=== PATIENT | female | born 1985 | race Caucasian/White ===

== ENCOUNTER 2019-11-17 09:54 | Outpatient (CLI) | payer BC ==
[~2019-11-17] VITALS: Ht 160 cm; Wt 62.7 kg
[2019-11-17 11:22] VITALS: BP 130/81
[2019-11-17] MEDS ORDERED: PREN1TAB10 PO (11:34)
== END 2019-11-17 11:55 | disposition home or self-care (01) ==
LOC: LDOP 09:54
PROVIDERS: ATTEND Obstetrics & Gynecology Maternal & Fetal Medicine
DX: O42.92 Full-term premature rupture of membranes, unspecified as to length of time between rupture and onset of labor (principal); Z3A.40 40 weeks gestation of pregnancy
CPT/HCPCS: 59025; 84112; 99211; G0463

== ENCOUNTER 2019-11-18 18:43 | Inpatient (IN) | payer BC ==
[~2019-11-18] VITALS: Ht 160 cm; Wt 63.0 kg
[~2019-11-18 18:43] MED LIST: PREN1TAB10 PO
[2019-11-18] MEDS ORDERED: MEPERIDINE/PF 50 MG/ML ONE (21:08)
[2019-11-18] MEDS ORDERED: PROMETHAZINE 25 MG/ML, 1ML IM PRN (21:20)
[2019-11-18] MEDS: MEPERIDINE/PF 50 MG/ML IM PRN (21:28)
[2019-11-18] MEDS ORDERED: OXYTOCIN 30U/ 0.9% NaCL 500ML 500 ML IV PRN (23:43)
[2019-11-18] MEDS ORDERED: OXYTOCIN 30U/ 0.9% NaCL 500ML 500 ML IV ONE (23:43)
[2019-11-18] MEDS ORDERED: LACTATED RINGERS 1,000 ML IV SCH (23:43)
[2019-11-19] MEDS ORDERED: METOCLOPRAMIDE 5 MG/ML, 2ML IVPush PRN
[2019-11-19] MEDS ORDERED: TERBUTALINE 1 MG/ML, 1ML IVPush PRN
[2019-11-19] MEDS ORDERED: FENTANYL PF 100 MCG/2ML IV PRN
[2019-11-19] MEDS ORDERED: FENTANYL PF 100 MCG/2ML IVPush PRN
[2019-11-19] MEDS ORDERED: SODIUM CITRATE/CITRIC ACID 30 ML UDC PO PRN
[2019-11-19] MEDS ORDERED: TERBUTALINE 1 MG/ML, 1ML SQ PRN
[2019-11-19 00:23] LABS: MEAN CORPUSCULAR HEMOGLOBIN 26.5 pg (27.0-34.8); MEAN CORPUSCULAR HGB CONC 32.1 g/dL (32.4-35.8); MEAN CORPUSCULAR VOLUME 82.6 fL (80-100); MEAN PLATELET VOLUME 8.2 fL (7.4-10.4); PLATELET COUNT 339 x10^3/uL (130-400); RED BLOOD COUNT 4.03 x10^6/uL (3.82-5.3); RED CELL DISTRIBUTION WIDTH 15.3 % (9.6-15.2)
[2019-11-19] MEDS ORDERED: FENTANYL PF 100 MCG/2ML ONE (00:29)
[2019-11-19 00:46] LABS: BASOPHILS # (AUTO) 0.03 x10^3/uL (0-0.1); BASOPHILS % (AUTO) 0 % (0-1); EOSINOPHILS # (AUTO) 0.01 x10^3/uL (0-0.4); EOSINOPHILS % (AUTO) 0 % (1-7); LYMPHOCYTES # (AUTO) 1.29 x10^3/uL (1-3.4); LYMPHOCYTES % (AUTO) 9 % (22-44); MD SCAN; MONOCYTES % (AUTO) 3 % (2-9); NEUTROPHILS # (AUTO) 13.09 x10^3/uL (1.8-6.8); NEUTROPHILS % (AUTO) 88 % (42-75)
[2019-11-19] MEDS ORDERED: BUPIVACAINE 0.25% ONE (01:14)
[2019-11-19] MEDS ORDERED: FENTANYL/BUPIV./NS/PF 250 ML EPIDCONT SCH ×2 (01:48)
[2019-11-19] MEDS ORDERED: LACTATED RINGERS 1,000 ML IV SCH ×2 (01:48)
[2019-11-19] MEDS ORDERED: LACTATED RINGERS 1,000 ML IVBOLUS PRN ×2 (02:00)
[2019-11-19] MEDS ORDERED: EPHEDRINE 50 MG/ML, 1ML IVPush PRN ×2 (02:00)
[2019-11-19] MEDS ORDERED: LIDOCAINE 1%, 20ML ONE (02:16)
[2019-11-19] MEDS ORDERED: MISOPROSTOL 200 MCG TABLET ONE (02:16)
[2019-11-19] MEDS ORDERED: OXYTOCIN 30U/ 0.9% NaCL 500ML 500 ML ONE ×2 (02:16→18:10)
[2019-11-19] MEDS ORDERED: NEWBORN KIT ONE (02:16)
[2019-11-19] MEDS ORDERED: EPHEDRINE 50 MG/ML, 1ML ONE (02:46)
[2019-11-19] MEDS: D5%-LACTATED RINGERS 1,000 ML IV SCH ×2 (09:57→17:54)
[2019-11-19] MEDS ORDERED: LIDOCAINE/MPF 2%-EPI 1:200K, 20 ML ONE (11:23)
[2019-11-19] MEDS ORDERED: ONDANSETRON 2MG/ML, 2ML ONE (15:30)
[2019-11-19] MEDS ORDERED: ONDANSETRON 2MG/ML, 2ML IVPush PRN (16:00)
[2019-11-19] MEDS ORDERED: CEFAZOLIN 1,000 MG in SODIUM CHLORIDE 0.9% 50 ML IV ONE (17:30)
[2019-11-19] MEDS: OXYTOCIN 30U/ 0.9% NaCL 500ML 500 ML IV SCH (17:40)
[2019-11-19] MEDS ORDERED: IBUPROFEN 600 MG TABLET ONE (17:47)
[2019-11-19] MEDS ORDERED: DIPH,PERTUSS(ACELL),TET VAC/PF NC IM-VACC PRN (18:00)
[2019-11-19] MEDS ORDERED: SIMETHICONE 80 MG CHEW TAB PO PRN ×2 (18:00→21:30)
[2019-11-19] MEDS ORDERED: CARBOPROST TROMETHAMINE 250 MCG/ML, 1ML IM PRN (18:00)
[2019-11-19] MEDS ORDERED: CEFAZOLIN PMX 1GM/50ML 50 ML IV ONE (18:00)
[2019-11-19] MEDS ORDERED: MISOPROSTOL 200 MCG TABLET PR PRN ×2 (18:00→21:30)
[2019-11-19] MEDS ORDERED: ACETAMINOPHEN 325 MG TABLET PO PRN ×3 (18:00→21:30)
[2019-11-19] MEDS ORDERED: OXYcodone/APAP 5/325MG TABLET PO PRN ×3 (18:00→21:30)
[2019-11-19] MEDS: IBUPROFEN 600 MG TABLET PO PRN (18:05)
[2019-11-19] MEDS ORDERED: DOCUSATE 100 MG CAPSULE ONE (18:24)
[2019-11-19] MEDS: DOCUSATE 100 MG CAPSULE PO PRN (18:26)
[2019-11-19] MEDS: ZOLPIDEM 5MG TABLET PO SCH (21:00)
[2019-11-19] MEDS ORDERED: OXYcodone IR 5MG TABLET PO PRN (21:30)
[2019-11-19] MEDS ORDERED: ONDANSETRON 2MG/ML, 2ML IV PRN (21:30)
[2019-11-19] MEDS ORDERED: IBUPROFEN 600 MG TABLET PO PRN (21:30)
[2019-11-19] MEDS ORDERED: DOCUSATE 100 MG CAPSULE PO PRN (21:30)
[2019-11-19 21:50] VITALS: BP 118/79
[2019-11-20 00:35] VITALS: BP 103/66
[2019-11-20] MEDS: IBUPROFEN 600 MG TABLET PO PRN ×4 (00:45→20:10)
[2019-11-20] MEDS: D5%-LACTATED RINGERS 1,000 ML IV SCH ×3 (01:54→17:54)
[2019-11-20 02:27] LABS: MEAN CORPUSCULAR HEMOGLOBIN 26.7 pg (27.0-34.8); MEAN CORPUSCULAR HGB CONC 32.6 g/dL (32.4-35.8); MEAN CORPUSCULAR VOLUME 81.9 fL (80-100); MEAN PLATELET VOLUME 8.2 fL (7.4-10.4); PLATELET COUNT 317 x10^3/uL (130-400); RED BLOOD COUNT 3.44 x10^6/uL (3.82-5.3); RED CELL DISTRIBUTION WIDTH 15.4 % (9.6-15.2)
[2019-11-20 02:48] LABS: BASOPHILS # (AUTO) 0.01 x10^3/uL (0-0.1); BASOPHILS % (AUTO) 0 % (0-1); EOSINOPHILS # (AUTO) 0.02 x10^3/uL (0-0.4); EOSINOPHILS % (AUTO) 0 % (1-7); LYMPHOCYTES # (AUTO) 1.27 x10^3/uL (1-3.4); LYMPHOCYTES % (AUTO) 5 % (22-44); MD SCAN; MONOCYTES # (AUTO) 0.25 x10^3/uL (0.2-0.8); MONOCYTES % (AUTO) 1 % (2-9); NEUTROPHILS # (AUTO) 21.89 x10^3/uL (1.8-6.8); NEUTROPHILS % (AUTO) 93 % (42-75)
[2019-11-20 03:35] VITALS: BP 131/82
[2019-11-20] MEDS: OXYTOCIN 30U/ 0.9% NaCL 500ML 500 ML IV SCH ×6 (03:40→23:40)
[2019-11-20 08:08] VITALS: BP 102/67
[2019-11-20] MEDS ORDERED: IBUPROFEN 600 MG TABLET ONE (08:17)
[2019-11-20] MEDS: DOCUSATE 100 MG CAPSULE PO PRN ×2 (08:25→20:10)
[2019-11-20] MEDS: PRENATAL VIT/IRON/FA 1 EACH TABLET PO SCH (08:25)
[2019-11-20] MEDS: MEPERIDINE/PF 50 MG/ML IM PRN ×2 (10:45→10:47)
[2019-11-20 12:45] VITALS: BP 111/71
[2019-11-20 16:22] VITALS: BP 96/61
[2019-11-20 19:40] VITALS: BP 113/77
[2019-11-20] MEDS: ZOLPIDEM 5MG TABLET PO SCH (21:00)
[2019-11-21] MEDS: D5%-LACTATED RINGERS 1,000 ML IV SCH ×3 (01:54→09:57)
[2019-11-21] MEDS: OXYTOCIN 30U/ 0.9% NaCL 500ML 500 ML IV SCH ×3 (03:02→09:56)
[2019-11-21] MEDS: IBUPROFEN 600 MG TABLET PO PRN (05:34)
[2019-11-21 07:35] VITALS: BP 122/72
[2019-11-21] MEDS ORDERED: IBUP-1222 PO (07:37)
[2019-11-21] MEDS ORDERED: FERR325T5 PO (07:39)
[2019-11-21] MEDS: DOCUSATE 100 MG CAPSULE PO PRN (08:37)
[2019-11-21] MEDS: PRENATAL VIT/IRON/FA 1 EACH TABLET PO SCH ×3 (08:37→09:00)
== END 2019-11-21 14:02 | disposition home or self-care (01) | DRG 806 ==
LOC: LDOP 18:43 → LDIP 11-19 00:34 → 2NW 11-19 21:28
PROVIDERS: ADMIT Obstetrics & Gynecology Maternal & Fetal Medicine; ATTEND Obstetrics & Gynecology Maternal & Fetal Medicine
PROC: 10E0XZZ Delivery of Products of Conception, External Approach (ICD-10-PCS; principal; 2019-11-19)
PROC: 0KQM0ZZ Repair Perineum Muscle, Open Approach (ICD-10-PCS; 2019-11-19)
PROC: 3E0R3BZ Introduction of Anesthetic Agent into Spinal Canal, Percutaneous Approach (ICD-10-PCS; 2019-11-19)
PROC: 00HU33Z Insertion of Infusion Device into Spinal Canal, Percutaneous Approach (ICD-10-PCS; 2019-11-19)
PROC: 10907ZC Drainage of Amniotic Fluid, Therapeutic from Products of Conception, Via Natural or Artificial Opening (ICD-10-PCS; 2019-11-19)
DX: O69.81X0 Labor and delivery complicated by cord around neck, without compression, not applicable or unspecified (principal); D62 Acute posthemorrhagic anemia; Z37.0 Single live birth; O63.9 Long labor, unspecified; J45.909 Unspecified asthma, uncomplicated; O70.1 Second degree perineal laceration during delivery; O77.0 Labor and delivery complicated by meconium in amniotic fluid; O99.52 Diseases of the respiratory system complicating childbirth; Z3A.40 40 weeks gestation of pregnancy; Z80.3 Family history of malignant neoplasm of breast; Z82.49 Family history of ischemic heart disease and other diseases of the circulatory system; O90.81 Anemia of the puerperium
CPT/HCPCS: 36415; J7121; 85025; 86592; 86850; 86900; G0378; J0690; J2175; J2405; J2550; J3010; J3490; J2590; J7120

== ENCOUNTER 2019-11-27 17:32 | Emergency (ER) | payer BC ==
[~2019-11-27] VITALS: Ht 160 cm; Wt 55.2 kg
[~2019-11-27 17:32] MED LIST changes: +FERR325T5 PO; +IBUP-1222 PO
--- NOTE | 2019-11-27 18:04 | NUR ---
PT STATES FEVER 2 DAYS AGO C GENERALIZED BODY ACHES. LAST DOSE OF 600MG MOTRIN AT 1500. AT BS. AWARE OF POSSIBLE U/S. WILL CTM.
[2019-11-27 18:21] LABS: BASOPHILS # (AUTO) 0.05 x10^3/uL (0-0.1); BASOPHILS % (AUTO) 1 % (0-1); EOSINOPHILS # (AUTO) 0.35 x10^3/uL (0-0.4); EOSINOPHILS % (AUTO) 4 % (1-7); LYMPHOCYTES # (AUTO) 1.33 x10^3/uL (1-3.4); LYMPHOCYTES % (AUTO) 15 % (22-44); MD NO; MEAN CORPUSCULAR HGB CONC 32.2 g/dL (32.4-35.8); MEAN CORPUSCULAR VOLUME 83.9 fL (80-100); MEAN PLATELET VOLUME 6.7 fL (7.4-10.4); MONOCYTES # (AUTO) 0.61 x10^3/uL (0.2-0.8); MONOCYTES % (AUTO) 7 % (2-9); NEUTROPHILS # (AUTO) 6.45 x10^3/uL (1.8-6.8); NEUTROPHILS % (AUTO) 73 % (42-75); PLATELET COUNT 504 x10^3/uL (130-400); RED BLOOD COUNT 4.39 x10^6/uL (3.82-5.3); RED CELL DISTRIBUTION WIDTH 17.1 % (9.6-15.2)
[2019-11-27 18:29] LABS: ALANINE AMINOTRANSFERASE 23 U/L (12-78); ALBUMIN 3.2 g/dL (3.4-5.0); ANION GAP 8 mmol/L (5-15); CALCIUM 9.2 mg/dL (8.5-10.1); CHLORIDE 110 mmol/L (98-107); CREATININE 0.77 mg/dL (0.55-1.02)
--- NOTE | 2019-11-27 18:30 | NUR ---
AT FOR SWABS. PLACED IN ISO. URINE COLLECTED & SENT.
[2019-11-27 18:32] LABS: ALKALINE PHOSPHATASE 136 U/L (45-117); BILIRUBIN,TOTAL 0.4 mg/dL (0.2-1.0); TOTAL PROTEIN 7.7 g/dL (6.4-8.2)
[2019-11-27 18:46] LABS: MICROSCOPIC AUTO
[2019-11-27 18:58] LABS: RAPID INFLUENZA A Negative (Negative); RAPID INFLUENZA B Negative (Negative)
[2019-11-27 19:28] VITALS: BP 136/94
== END 2019-11-27 19:30 | disposition home or self-care (01) ==
LOC: ED 19:23
DX: N30.00 Acute cystitis without hematuria (principal); Z20.828 Contact with and (suspected) exposure to other viral communicable diseases; R50.9 Fever, unspecified; N61.0 Mastitis without abscess
CPT/HCPCS: 36415; 71045; 80053; 81001; 84145; 85025; 87086; 87400; 99284